=== PATIENT | male | born 1975 | race American Indian/Alaskan Native ===

== ENCOUNTER 2017-10-16 14:39 | Emergency (ER) | payer SELFPAY ==
[2017-10-16] MEDS ORDERED: ZOFRAN ODT PO/SL ONE (17:50)
[2017-10-16] MEDS ORDERED: PERCOCET 5/325 PO ONE (17:50)
--- NOTE | 2017-10-16 17:53 | Emergency Department Report ---
<VIVEK GARZA - Last Filed: 10/16/17 18:36> ED Abdominal Pain HPI - General Chief Complaint: Abdominal Pain Stated Complaint: PANCREATITIS FLARE Time Seen by Provider: 10/16/17 17:42 Source: patient Mode of arrival: Ambulatory Limitations: No Limitations - History of Present Illness Initial Comments: Mr. Collazo presents with "pancreatitis" due to greasy foods. He has had previous hx of pancreatitis. Drinks alcohol on a week basis. Last drink one week ago. +hx of HTN and DM MD Complaint: abdominal pain -: days(s) (2) Location: epigastric Radiation: RUQ, back Severity: moderate Quality: cramping, sharp Consistency: constant Improves With: nothing Worsens With: eating - Related Data Previous Rx's Medication Instructions Recorded Last Taken Type Acetaminophen/Codeine [Tylenol 1 tab PO Q8H PRN #7 tab 10/16/17 Unknown Rx /Codeine # 3 tab] Famotidine 20 mg PO BID 30 Days #60 tablet 10/16/17 Unknown Rx Allergies Allergy/AdvReac Type Severity Reaction Status Date / Time No Known Allergies Allergy Unverified 10/16/17 15:33 ED Review of Systems ROS: Stated complaint: PANCREATITIS FLARE Other details as noted in HPI Comment: All other systems reviewed and negative Constitutional: denies: fever, malaise Cardiovascular: denies: chest pain ED Past Medical Hx - Past Medical History Hx Hypertension: Yes Hx Diabetes: Yes Additional medical history: PANCREATITIS - Surgical History Past Surgical History?: No - Social History Smoking Status: Current Every Day Smoker Substance Use Type: Alcohol - Medications Home Medications: Home Medications Medication Instructions Recorded Confirmed Last Taken Type Acetaminophen/Codeine [Tylenol 1 tab PO Q8H PRN #7 tab 10/16/17 Unknown Rx /Codeine # 3 tab] Famotidine 20 mg PO BID 30 Days #60 tablet 10/16/17 Unknown Rx ED Physical Exam - General Limitations: No Limitations General appearance: alert, in no apparent distress - Head Head exam: Present: atraumatic, normocephalic - Eye Eye exam: Present: normal appearance - ENT ENT exam: Present: mucous membranes moist - Neck Neck exam: Present: normal inspection - Respiratory Respiratory exam: Present: normal lung sounds bilaterally. Absent: respiratory distress, wheezes, rales, rhonchi - Cardiovascular Cardiovascular Exam: Present: regular rate, normal rhythm, normal heart sounds. Absent: systolic murmur, diastolic murmur, rubs, gallop - GI/Abdominal GI/Abdominal exam: Present: soft. Absent: distended, tenderness, guarding, rebound - Rectal Rectal exam: Present: deferred - Extremities Exam Extremities exam: Present: normal inspection - Back Exam Back exam: Present: normal inspection - Neurological Exam Neurological exam: Present: alert, oriented X3 - Psychiatric Psychiatric exam: Present: normal affect, normal mood - Skin Skin exam: Present: warm, dry, intact, normal color. Absent: rash ED Course Vital Signs 10/16/17 15:33 Temperature 98.6 F Pulse Rate 78 Respiratory 18 Rate Blood Pressure 144/98 O2 Sat by Pulse 100 Oximetry ED Medical Decision Making - Medical Decision Making Mr. Collazo has hx of pancreatitis. He presents with 2 days of epigastric pain radiating to the right upper quadrant and mid back. He appears well and comfortable. If lipase is elevated, I anticipate admission to hospital. Otherwise, my colleague will determine final disposition as appropriate. Critical care attestation.: If time is entered above; I have spent that time in minutes in the direct care of this critically ill patient, excluding procedure time. ED Disposition Clinical Impression: Pancreatitis Qualifiers: Chronicity: acute Pancreatitis type: unspecified pancreatitis type Acute pancreatitis complication: unspecified Qualified Code(s): K85.90 - Acute pancreatitis without necrosis or infection, unspecified Abdominal pain Qualifiers: Abdominal location: left upper quadrant Qualified Code(s): R10.12 - Left upper quadrant pain Nausea and vomiting Qualifiers: Vomiting type: unspecified Vomiting Intractability: non-intractable Qualified Code(s): R11.2 - Nausea with vomiting, unspecified Disposition: DC-01 TO HOME OR SELFCARE Condition: Stable Instructions: Abdominal Pain (ED), Pancreatitis (ED), Acute Nausea and Vomiting (ED) Prescriptions: Acetaminophen/Codeine [Tylenol /Codeine # 3 tab] 1 tab PO Q8H PRN #7 tab PRN Reason: Pain Famotidine 20 mg PO BID 30 Days #60 tablet Referrals: [facility] [Outside] - 3-5 Days Forms: Work/School Release Form(ED) <ANDREA BELCHER - Last Filed: 10/16/17 20:53> ED Medical Decision Making - Lab Data Result diagrams: 06/15/18 18:55 10/16/17 18:55 Laboratory Tests 10/16/17 10/16/17 18:55 18:55 WBC 9.5 RBC 5.61 H Hgb 16.6 H Hct 48.5 H MCV 87 MCH 30 MCHC 34 RDW 14.7 Plt Count 313 Lymph % (Auto) 11.4 L Hood % (Auto) 8.8 H Eos % (Auto) 0.9 Baso % (Auto) 0.7 Lymph # 1.1 L Hood # 0.8 Eos # 0.1 Baso # 0.1 Seg Neutrophils % 78.2 H Seg Neutrophils # 7.4 Sodium 136 L Potassium 3.9 Chloride 93.0 L Carbon Dioxide 26 Anion Gap 21 BUN 22 H Creatinine 1.1 Estimated GFR > 60 BUN/Creatinine Ratio 20 Glucose 138 H Calcium 9.8 Total Bilirubin 0.80 Direct Bilirubin 0.3 H Indirect Bilirubin 0.5 AST 29 ALT 24 Alkaline Phosphatase 91 Total Protein 8.8 H Albumin 4.9 Albumin/Globulin Ratio 1.3 Lipase 142 H - Medical Decision Making Lipase at 142 patient appears well appears well-hydrated patient is tolerating by mouth intake without nausea vomiting discussed lipase level with patient , patient states last drink 3 weeks ago, BISAP score for pancreatitis is 0, patient states he does not want admission discussed the importance of H2 laura patient requesting narcotic pain medication discussed with patient did not feel comfortable with same we'll prescribe 7 Tylenol 3 patient will follow up with [facility] given referral to same for EtOH not likely related to stop patient will be discharged to home in stable condition at this time there is no nausea no vomiting no fever no abnormal vital signs patient just completed evening meal will be discharged home at this time. ED Disposition Is pt being admited?: No Does the pt Need Aspirin: No Time of Disposition: 20:53
[2017-10-16 19:22] LABS: Basophils # (Auto) 0.1 K/mm3 (0.0-0.1); Basophils % (Auto) 0.7 % (0.0-1.8); Eosinophils # (Auto) 0.1 K/mm3 (0.0-0.4); Eosinophils % (Auto) 0.9 % (0.0-4.3); Hematocrit 48.5 % (35.5-45.6); Hemoglobin 16.6 gm/dl (11.8-15.2); Lymphocytes # (Auto) 1.1 K/mm3 (1.2-5.4); Lymphocytes % (Auto) 11.4 % (13.4-35.0); Mean Corpuscular HGB Conc 34 % (32-34); Mean Corpuscular Hemoglobin 30 pg (28-32); Mean Corpuscular Volume 87 fl (84-94); Monocytes # (Auto) 0.8 K/mm3 (0.0-0.8); Monocytes % (Auto) 8.8 % (0.0-7.3); Platelet Count 313 K/mm3 (140-440); Red Blood Count 5.61 M/mm3 (3.65-5.03); Red Cell Distribution Width 14.7 % (13.2-15.2)
[2017-10-16 19:44] LABS: Alanine Aminotransferase 24 units/L (7-56); Albumin 4.9 g/dL (3.9-5); BUN/Creatinine Ratio 20; Bilirubin,Direct 0.3 mg/dL (0-0.2); Blood Urea Nitrogen 22 mg/dL (9-20); Calcium 9.8 mg/dL (8.4-10.2); Hemolysis Index 3; Lipase 142 units/L (13-60)
[2017-10-16 23:48] VITALS: BP 143/98
== END 2017-10-16 21:31 | disposition home or self-care (01) ==
LOC: ED 14:39
DX: K85.90 Acute pancreatitis without necrosis or infection, unspecified (principal); I10 Essential (primary) hypertension; E11.9 Type 2 diabetes mellitus without complications; F17.200 Nicotine dependence, unspecified, uncomplicated
CPT/HCPCS: 36415; 80048; 80074; 83690; 85025; Q0162

== ENCOUNTER 2018-05-16 00:41 | Emergency (ER) | payer SELFPAY ==
[2018-05-16 01:12] VITALS: BP 146/93
[2018-05-16] MEDS ORDERED: DECADRON IM ONE (03:19)
[2018-05-16] MEDS ORDERED: IBUPROFEN PO ONE (03:19)
[2018-05-16] MEDS ORDERED: AUGMENTIN 875 MG PO ONE (03:19)
--- NOTE | 2018-05-16 03:26 | Emergency Department Report ---
ED ENT HPI - General Chief complaint: Sore Throat Stated complaint: SORE THROAT Time Seen by Provider: 05/16/18 03:15 Source: patient Mode of arrival: Ambulatory Limitations: No Limitations - History of Present Illness Initial comments: Patient is a 42-year-old -Citizen Of [place] male with history of recurrent strep throat presents for sore throat fever dysphagia 3 days T max 101.2 f oral at home pt has not take otc nsaids pt deneis dizziness lightheadedness no n/v MD complaint: sore throat Onset/Timin -: days(s) Location: throat Severity: moderate Severity scale (0 -10): 5 Quality: sharp Consistency: constant Improves with: none Worsens with: swallowing Associated Symptoms: fever, pain with swallowing, sore throat - Related Data Previous Rx's Medication Instructions Recorded Last Taken Type Acetaminophen/Codeine [Tylenol 1 tab PO Q8H PRN #7 tab 10/16/17 Unknown Rx /Codeine # 3 tab] Famotidine 20 mg PO BID 30 Days #60 tablet 10/16/17 Unknown Rx Amoxicillin/Potassium Clav 1 each PO BID 10 Days #20 tablet 05/16/18 Unknown Rx [Augmentin 875-125 Tablet] Benzocaine/Menth/Cetylpyrd 1 each MM Q2H PRN #3 packet 05/16/18 Unknown Rx [Cepacol X Strength] Ibuprofen 800 mg PO TID PRN #30 tablet 05/16/18 Unknown Rx Allergies Allergy/AdvReac Type Severity Reaction Status Date / Time No Known Allergies Allergy Unverified 10/16/17 15:33 ED Dental HPI - General Chief complaint: Sore Throat Stated complaint: SORE THROAT Time Seen by Provider: 05/16/18 03:15 Source: patient Mode of arrival: Ambulatory Limitations: No Limitations - Related Data Previous Rx's Medication Instructions Recorded Last Taken Type Acetaminophen/Codeine [Tylenol 1 tab PO Q8H PRN #7 tab 10/16/17 Unknown Rx /Codeine # 3 tab] Famotidine 20 mg PO BID 30 Days #60 tablet 10/16/17 Unknown Rx Amoxicillin/Potassium Clav 1 each PO BID 10 Days #20 tablet 05/16/18 Unknown Rx [Augmentin 875-125 Tablet] Benzocaine/Menth/Cetylpyrd 1 each MM Q2H PRN #3 packet 05/16/18 Unknown Rx [Cepacol X Strength] Ibuprofen 800 mg PO TID PRN #30 tablet 05/16/18 Unknown Rx Allergies Allergy/AdvReac Type Severity Reaction Status Date / Time No Known Allergies Allergy Unverified 10/16/17 15:33 ED Review of Systems ROS: Stated complaint: SORE THROAT Other details as noted in HPI Constitutional: chills, fever, malaise Eyes: denies: eye pain, eye discharge, vision change ENT: throat pain Respiratory: denies: cough, shortness of breath, wheezing Cardiovascular: denies: chest pain, palpitations Endocrine: no symptoms reported Gastrointestinal: denies: abdominal pain, nausea, diarrhea Genitourinary: denies: urgency, dysuria Musculoskeletal: denies: back pain, joint swelling, arthralgia Skin: denies: rash, lesions Neurological: denies: headache, weakness, paresthesias Psychiatric: denies: anxiety, depression Hematological/Lymphatic: denies: easy bleeding, easy bruising ED Past Medical Hx - Past Medical History Previous Medical History?: Yes Hx Hypertension: Yes Hx Diabetes: Yes Additional medical history: PANCREATITIS - Social History Smoking Status: Heavy Tobacco Smoker Substance Use Type: Alcohol, Marijuana - Medications Home Medications: Home Medications Medication Instructions Recorded Confirmed Last Taken Type Acetaminophen/Codeine [Tylenol 1 tab PO Q8H PRN #7 tab 10/16/17 Unknown Rx /Codeine # 3 tab] Famotidine 20 mg PO BID 30 Days #60 tablet 10/16/17 Unknown Rx Amoxicillin/Potassium Clav 1 each PO BID 10 Days #20 tablet 05/16/18 Unknown Rx [Augmentin 875-125 Tablet] Benzocaine/Menth/Cetylpyrd 1 each MM Q2H PRN #3 packet 05/16/18 Unknown Rx [Cepacol X Strength] Ibuprofen 800 mg PO TID PRN #30 tablet 05/16/18 Unknown Rx ED Physical Exam - General Limitations: No Limitations General appearance: alert, in no apparent distress - Head Head exam: Present: atraumatic, normocephalic - Eye Eye exam: Present: normal appearance, PERRL, EOMI Pupils: Present: normal accommodation - ENT ENT exam: Present: mucous membranes moist - Expanded ENT Exam Expanded Ear exam: Present: normal external inspection Mouth exam: Present: tongue normal. Absent: trismus, tongue elevation Throat exam: Positive: tonsillar erythema, tonsillomegaly, tonsillar exudate, other (uvula midline moderat exudate no lesion no stridor no wheezing no tonsilar abscess ). Negative: R peritonsillar mass, L peritonsillar mass - Neck Neck exam: Present: normal inspection, full ROM, lymphadenopathy. Absent: tenderness, meningismus, thyromegaly - Expanded Neck Exam Expanded Neck exam: Absent: tenderness, midline deformity, anterior neck swelling, thyroid mass, carotid bruit, tracheal deviation - Respiratory Respiratory exam: Present: normal lung sounds bilaterally. Absent: respiratory distress, wheezes, stridor, chest wall tenderness - Cardiovascular Cardiovascular Exam: Present: regular rate, normal rhythm, normal heart sounds. Absent: systolic murmur, diastolic murmur, rubs, gallop - GI/Abdominal GI/Abdominal exam: Present: soft, normal bowel sounds - Rectal Rectal exam: Present: deferred - Extremities Exam Extremities exam: Present: normal inspection - Back Exam Back exam: Present: normal inspection, full ROM, muscle spasm. Absent: tenderness, CVA tenderness (R), CVA tenderness (L), paraspinal tenderness, vertebral tenderness, rash noted - Neurological Exam Neurological exam: Present: alert, oriented X3, CN II-XII intact, normal gait - Psychiatric Psychiatric exam: Present: normal affect, normal mood - Skin Skin exam: Present: warm, dry, intact, normal color. Absent: rash ED Course Vital Signs 05/16/18 05/16/18 00:47 01:02 Temperature 99.1 F 99 F Pulse Rate 120 H 116 H Respiratory 18 18 Rate Blood Pressure 146/93 146/93 O2 Sat by Pulse 97 96 Oximetry ED Medical Decision Making - Lab Data Labs 05/16/18 01:26 Group A Strep Rapid Negative - Medical Decision Making This the actual pharyngitis Plan Decadron Augmentin Benadryl with DC to home with Cepacol Augmentin Benadryl patient will follow up with ENT in 2-3 days return to emergency department should symptoms worsen there are no symptoms of tonsillar abscess he will remain midline there is no stridor lungs are clear fevers improved heart rate is improved patient will be DC'd home in stable condition at this time Critical care attestation.: If time is entered above; I have spent that time in minutes in the direct care of this critically ill patient, excluding procedure time. ED Disposition Clinical Impression: Pharyngitis Qualifiers: Pharyngitis/tonsillitis etiology: unspecified etiology Qualified Code(s): J02.9 - Acute pharyngitis, unspecified Disposition: TO HOME OR SELFCARE Is pt being admited?: No Does the pt Need Aspirin: No Condition: Stable Instructions: Pharyngitis (ED) Prescriptions: Amoxicillin/Potassium Clav [Augmentin 875-125 Tablet] 1 each PO BID 10 Days #20 tablet Benzocaine/Menth/Cetylpyrd [Cepacol X Strength] 1 each MM Q2H PRN #3 packet PRN Reason: Pain , Severe (7-10) Ibuprofen 800 mg PO TID PRN #30 tablet PRN Reason: fever pain Referrals: MARISSA WAGNER MD [Staff Physician] - 3-5 Days Forms: Work/School Release Form(ED) Time of Disposition: 03:33
== END 2018-05-16 03:43 | disposition home or self-care (01) ==
LOC: ED 00:41
DX: J02.9 Acute pharyngitis, unspecified (principal); I10 Essential (primary) hypertension; E11.9 Type 2 diabetes mellitus without complications; F17.200 Nicotine dependence, unspecified, uncomplicated; F12.10 Cannabis abuse, uncomplicated
CPT/HCPCS: 87116; 87430; 96372; 99283; J1100

== ENCOUNTER 2018-06-22 18:15 | Emergency (ER) | payer SELFPAY ==
[2018-06-22 20:34] VITALS: BP 140/83
--- NOTE | 2018-06-22 20:42 | Emergency Department Report ---
ED Abdominal Pain HPI - General Chief Complaint: Abdominal Pain Stated Complaint: STOMACH PAIN Time Seen by Provider: 06/22/18 18:48 Source: patient Mode of arrival: Ambulatory Limitations: No Limitations - History of Present Illness Initial Comments: 42 y/o male with pmh of chronic recurrent pancreaittis presents to ed c/o of resolvoing abdominal pain since thursday due drinking and eating that caused a pancreatitis flare. only wants a note to return to work. Dneies vomiting or diarrhea. No fever or chills. no sweats. MD Complaint: abdominal pain Location: epigastric Radiation: epigastric Severity: mild Severity scale (0 -10): 4 Quality: stabbing Consistency: constant Improves With: nothing Worsens With: nothing Context: other Associated Symptoms: denies: vomiting, constipation, dysuria, hematemesis, hematuria, anorexia, syncope - Related Data Previous Rx's Medication Instructions Recorded Last Taken Type Acetaminophen/Codeine [Tylenol 1 tab PO Q8H PRN #7 tab 10/16/17 Unknown Rx /Codeine # 3 tab] Famotidine 20 mg PO BID 30 Days #60 tablet 10/16/17 Unknown Rx Amoxicillin/Potassium Clav 1 each PO BID 10 Days #20 tablet 05/16/18 Unknown Rx [Augmentin 875-125 Tablet] Benzocaine/Menth/Cetylpyrd 1 each MM Q2H PRN #3 packet 05/16/18 Unknown Rx [Cepacol X Strength] Ibuprofen 800 mg PO TID PRN #30 tablet 05/16/18 Unknown Rx Allergies Allergy/AdvReac Type Severity Reaction Status Date / Time No Known Allergies Allergy Verified 06/22/18 20:32 ED Review of Systems ROS: Stated complaint: STOMACH PAIN Other details as noted in HPI Constitutional: denies: chills, fever Eyes: denies: eye pain, eye discharge, vision change ENT: denies: ear pain, throat pain Respiratory: denies: cough, shortness of breath, wheezing Cardiovascular: denies: chest pain, palpitations Endocrine: no symptoms reported Gastrointestinal: abdominal pain. denies: nausea, diarrhea, hematemesis Genitourinary: denies: urgency, dysuria Musculoskeletal: denies: back pain, joint swelling, arthralgia Skin: denies: rash, lesions Neurological: denies: headache, weakness, paresthesias Psychiatric: denies: anxiety, depression Hematological/Lymphatic: denies: easy bleeding, easy bruising ED Past Medical Hx - Past Medical History Hx Hypertension: Yes Hx Diabetes: Yes Additional medical history: PANCREATITIS - Surgical History Past Surgical History?: No - Social History Smoking Status: Current Every Day Smoker Substance Use Type: Alcohol, Marijuana - Medications Home Medications: Home Medications Medication Instructions Recorded Confirmed Last Taken Type Acetaminophen/Codeine [Tylenol 1 tab PO Q8H PRN #7 tab 10/16/17 Unknown Rx /Codeine # 3 tab] Famotidine 20 mg PO BID 30 Days #60 tablet 10/16/17 Unknown Rx Amoxicillin/Potassium Clav 1 each PO BID 10 Days #20 tablet 05/16/18 Unknown Rx [Augmentin 875-125 Tablet] Benzocaine/Menth/Cetylpyrd 1 each MM Q2H PRN #3 packet 05/16/18 Unknown Rx [Cepacol X Strength] Ibuprofen 800 mg PO TID PRN #30 tablet 05/16/18 Unknown Rx ED Physical Exam - General Limitations: No Limitations General appearance: alert, in no apparent distress - Head Head exam: Present: atraumatic, normocephalic - Eye Eye exam: Present: normal appearance, PERRL - ENT ENT exam: Present: mucous membranes moist - Neck Neck exam: Present: normal inspection - Respiratory Respiratory exam: Present: normal lung sounds bilaterally. Absent: respiratory distress - Cardiovascular Cardiovascular Exam: Present: regular rate, normal rhythm. Absent: systolic murmur, diastolic murmur, rubs, gallop - GI/Abdominal GI/Abdominal exam: Present: soft, normal bowel sounds - Rectal Rectal exam: Present: deferred - Extremities Exam Extremities exam: Present: normal inspection - Back Exam Back exam: Present: normal inspection - Neurological Exam Neurological exam: Present: alert, oriented X3 - Psychiatric Psychiatric exam: Present: normal affect, normal mood - Skin Skin exam: Present: warm, dry, intact, normal color. Absent: rash ED Course Vital Signs 06/22/18 20:32 Temperature 97.8 F Pulse Rate 98 H Respiratory 18 Rate Blood Pressure 140/83 O2 Sat by Pulse 98 Oximetry ED Medical Decision Making - Medical Decision Making discussed labs and imaging. mr. murphy refused saying he is better an already knows what was going on. only wants a work note Critical care attestation.: If time is entered above; I have spent that time in minutes in the direct care of this critically ill patient, excluding procedure time. ED Disposition Clinical Impression: Abdominal pain Disposition: DC-01 TO HOME OR SELFCARE Is pt being admited?: No Does the pt Need Aspirin: No Condition: Stable Instructions: Pancreatitis (ED) Referrals: [facility] [Provider Group] - 3-5 Days Forms: Work/School Release Form(ED)
== END 2018-06-22 20:59 | disposition home or self-care (01) ==
LOC: ED 18:15
DX: R10.13 Epigastric pain (principal); I10 Essential (primary) hypertension; F17.200 Nicotine dependence, unspecified, uncomplicated; E11.9 Type 2 diabetes mellitus without complications; F12.10 Cannabis abuse, uncomplicated
CPT/HCPCS: 99282

== ENCOUNTER 2018-07-11 16:21 | Emergency (ER) | payer OTHER ==
--- NOTE | 2018-07-11 16:33 | Emergency Department Report ---
Blank Doc - Documentation Documentation: This is a 42-year-old male that presents with right hand pain with tingling and numbness sensation. Patient stated has history of tendinitis to the right hand. Stated symptoms are similar. This initial assessment/diagnostic orders/clinical plan/treatment(s) is/are subject to change based on patient's health status, clinical progression and re- assessment by fellow clinical providers in the ED. Further treatment and workup at subsequent clinical providers discretion. Patient/guardians urged not to elope from the ED as their condition may be serious if not clinically assessed and managed. Initial orders include: 1- Patient sent to [facility] for further evaluation and treatment 2- xray
[2018-07-11 16:35] VITALS: BP 128/76
--- NOTE | 2018-07-11 17:17 | Emergency Department Report ---
Upper Extremity - HPI Chief Complaint: Extremity Injury, Upper Stated Complaint: HAND HURTS Time Seen by Provider: 07/11/18 17:01 Upper Extremity: Right Hand Occurred When: >5 Days Symptoms: Yes Pain with Movement, No Deformity, No Limited Range of Movement, No Numbness, No Weakness, No Swelling, No Bruising/Ecchymosis, No Laceration or Abrasion Other History: Patient is a 42-year-old male that presents emergency room with complaints of right hand pain. Patient states she's had right hand pain for 10 years and came to the emergency room for a work note as he called in sick yesterday and wants to call in sick today. Patient states the pain is a 7 out of 10. Patient states worse with movement and better with rest and immobilization. Patient denies trauma. Patient states he's never seen an orthopedist. Patient states he hasn't seen his primary care recently. ED Review of Systems ROS: Stated complaint: HAND HURTS Other details as noted in HPI Constitutional: denies: chills, fever Eyes: denies: eye pain, eye discharge, vision change ENT: denies: ear pain, throat pain Respiratory: denies: cough, shortness of breath, wheezing Cardiovascular: denies: chest pain, palpitations Endocrine: no symptoms reported Gastrointestinal: denies: abdominal pain, nausea, diarrhea Genitourinary: denies: urgency, dysuria Musculoskeletal: denies: back pain, joint swelling, arthralgia Skin: denies: rash, lesions Neurological: denies: headache, weakness, paresthesias Psychiatric: denies: anxiety, depression Hematological/Lymphatic: denies: easy bleeding, easy bruising ED Past Medical Hx - Past Medical History Previous Medical History?: Yes Hx Hypertension: Yes Hx Diabetes: Yes Additional medical history: PANCREATITIS. Chronic right hand pain - Surgical History Past Surgical History?: No - Family History Family history: no significant - Social History Smoking Status: Current Every Day Smoker Substance Use Type: None, Marijuana - Medications Home Medications: Home Medications Medication Instructions Recorded Confirmed Last Taken Type Acetaminophen/Codeine [Tylenol 1 tab PO Q8H PRN #7 tab 10/16/17 Unknown Rx /Codeine # 3 tab] Famotidine 20 mg PO BID 30 Days #60 tablet 10/16/17 Unknown Rx Amoxicillin/Potassium Clav 1 each PO BID 10 Days #20 tablet 05/16/18 Unknown Rx [Augmentin 875-125 Tablet] Benzocaine/Menth/Cetylpyrd 1 each MM Q2H PRN #3 packet 05/16/18 Unknown Rx [Cepacol X Strength] Ibuprofen 800 mg PO TID PRN #30 tablet 05/16/18 Unknown Rx Upper Extremity Exam - Exam General: Vital signs noted. No distress. Alert and acting appropriately. The patient appeared well nourished and normally developed. Vital signs as documented. Head exam is unremarkable. No scleral icterus or corneal arcus noted. Lungs are clear to auscultation and percussion. Cardiac exam reveals Rhythm is regular. First and second heart sounds normal. No murmurs, rubs or gallops. Head and Torso: No HEENT Abnormality, No Neck Tenderness, No Chest/Lungs Abnormality, No Abdominal Tenderness, No Back Tenderness Shoulder Exam: Yes Normal Range of Motion in Shoulder, No Shoulder Tenderness, No Clavicle Tenderness, No Shoulder Deformity, No AC Joint Tenderness Arm Exam: No Arm/Humerus Tenderness, No Arm Deformity Elbow: No Elbow Tenderness, No Normal Range of Motion in Elbow, No Elbow Deformity Forearm: No Forearm Tenderness, No Forearm Deformity, No Pain with Pronation, No Pain with Supination Wrist: Yes Normal ROM in Wrist, No Wrist Tenderness, No Wrist Deformity, No Snuffbox Tenderness, No Pain with Axial Thumb Compression Hand: Yes Normal ROM in Digit(s), No Hand Tenderness, No Hand Deformity, No Digit Tenderness, No Digit(s) Deformity, No Tendon Dysfunction CMS Exam: No Broken Skin, No Normal Distal Pulses, No Normal Capillary Refill, No Normal Distal Sensation ED Course Vital Signs 07/11/18 16:32 Temperature 97.9 F Pulse Rate 95 H Respiratory 18 Rate Blood Pressure 128/76 O2 Sat by Pulse 99 Oximetry - Reevaluation(s) Reevaluation #1: Initial exam done. Discussed plan of care with patient. Patient is not having any emergency medical condition. Patient does not require any further investigation ER. Patient needs to follow up with orthopedist and his primary care. Patient will be discharged home. Patient given discharge instruction. Patient voiced understanding of discharge instructions. Patient is requesting a work note for yesterday and today. Patient instructed to follow up with his primary care orthopedist for such documentation. 07/11/18 17:15 ED Medical Decision Making - Medical Decision Making Patient is a 42-year-old male up since July in with complaints of right hand pain. Patient states the pain is fluctuating at this time is a 7 out of 10. Patient states he really came to the emergency room for a work note. Discussed plan of care with patient. Patient is not having any emergency medical condition. Patient does not require any further investigation ER. Patient needs to follow up with orthopedist and his primary care. Patient will be discharged home. Patient given discharge instruction. Patient voiced understanding of discharge instructions. Patient is requesting a work note for yesterday and today. Patient instructed to follow up with his primary care orthopedist for such documentation. - Differential Diagnosis hand pain. Chronic hand pain Critical care attestation.: If time is entered above; I have spent that time in minutes in the direct care of this critically ill patient, excluding procedure time. ED Disposition Clinical Impression: Hand pain, right Disposition: DC-01 TO HOME OR SELFCARE Is pt being admited?: No Does the pt Need Aspirin: No Condition: Stable Instructions: Chronic Pain (ED), Tenosynovitis (ED), Tendinitis (ED) Additional Instructions: Patient to follow up with primary care in 2-3 days. Patient to follow-up with orthopedist in 2-3 days. Patient to return to ER condition worsens or changes. Patient to take Tylenol or ibuprofen when necessary for pain. Patient to rest. Patient to see primary care or orthopedist for work notes. Referrals: DANAE TEJEDA MD [Staff Physician] - 2-3 Days Time of Disposition: 17:18
--- NOTE | 2018-07-11 18:06 | XRay Report ---
PROCEDURE: Right hand. TECHNIQUE: 4 views. HISTORY: Right hand pain. COMPARISONS: None. FINDINGS: The bones appear intact without fracture or dislocation. The joint spaces appear normal. The soft tis sues are unremarkable. IMPRESSION: Normal study. This document is electronically signed by Raul Ascencio MD., July 11 2018 06:03:02 PM ET
== END 2018-07-11 17:25 | disposition home or self-care (01) ==
LOC: ED 16:21
DX: M79.641 Pain in right hand (principal); I10 Essential (primary) hypertension; E11.9 Type 2 diabetes mellitus without complications; G89.29 Other chronic pain; F17.200 Nicotine dependence, unspecified, uncomplicated
CPT/HCPCS: 99283

== ENCOUNTER 2018-10-08 16:07 | Emergency (ER) | payer SELFPAY ==
[2018-10-08 16:20] VITALS: BP 132/80
== END 2018-10-08 19:00 | disposition left against medical advice (07) ==
LOC: ED 16:07
DX: M79.601 Pain in right arm (principal); Z53.21 Procedure and treatment not carried out due to patient leaving prior to being seen by health care provider

== ENCOUNTER 2019-03-05 04:35 | Emergency (ER) | payer OTHER ==
[2019-03-05 04:58] VITALS: BP 145/97
--- NOTE | 2019-03-05 06:25 | Emergency Department Report ---
Chief Complaint: Medical Clearance Stated Complaint: ABD PAIN Time Seen by Provider: 03/05/19 06:08 - HPI History of Present Illness: Patient here reported that he missed 2 days of work [place] was having a pancreatitis flare up and he was having abdominal pain but he is better now he states is here to have a work excuse then. Denies any fever or chills. Denies any diarrhea, urinary burning or frequency, abdominal pain, nausea or vomiting. Denies any shortness of breath or cough. Patient reports, "it is I feel better I just need a work excuse". - ROS Review of Systems: All systems are negative except with stated in HPI. Patient here for work excuse. Negative nausea, negative abdominal pain, negative diarrhea, negative vomiting, negative fever or chills, negative cough or chest pain - Exam Vital Signs: Vital Signs 03/05/19 04:57 Temperature 98.2 F Pulse Rate 100 H Respiratory 20 Rate Blood Pressure 145/97 [Right] O2 Sat by Pulse 100 Oximetry Physical Exam: Gen. this is a 43-year-old male well-nourished well-developed in no acute distress. He is here to get work excuse in denies any other problem. Alert and oriented 3 and GCS of 15. Gait is normal MSE screening note: Focused history and physical exam performed. Due to findings the following was ordered: I discussed the patient that this if he needs to be seen for abdominal pain which he said he does not have any more than we will be able to see him but if he does need a work excuse then I will not be able to give him a work excuse because that is not an appropriate emergency room visit. Patient walked out before signing AMA. Please see weakness AMA signed by myself and nurse. I discussed this with Dr. Dc. Patient discussed with doctor:: MEETA DC ED Disposition for MSE Condition: Stable Referrals: PRIMARY CARE, [Primary Care Provider] - 3-5 Days Forms: AMA Form
== END 2019-03-05 06:30 | disposition left against medical advice (07) ==
LOC: ED 04:35
DX: R10.9 Unspecified abdominal pain (principal); Z53.21 Procedure and treatment not carried out due to patient leaving prior to being seen by health care provider

== ENCOUNTER 2019-04-22 17:25 | Emergency (ER) | payer SELFPAY ==
[2019-04-22 19:52] VITALS: BP 110/70
--- NOTE | 2019-04-22 19:57 | Emergency Department Report ---
Chief Complaint: Sore Throat Stated Complaint: SORE THROAT/RUNNY NOSE Time Seen by Provider: 04/22/19 19:50 - HPI History of Present Illness: This is a 43 y.o. M. that presents to the ER with sore throat, congestion, and cough for 5 days. Taking theraflu and NSAIDs. PMH of DM, HTN, and anxiety Current smoker - ROS Review of Systems: ROS: Stated complaint: FLU LIKE SX Other details as noted in HPI Constitutional: chills, fever ENT: congestion, throat pain. denies: ear pain, Respiratory: cough. denies: shortness of breath, wheezing Cardiovascular: chest pain. denies: palpitations Gastrointestinal: denies: abdominal pain, nausea, diarrhea Musculoskeletal: myalgia. denies: back pain, joint swelling, arthralgia Skin: denies: rash, lesions Neurological: denies: headache, weakness, paresthesias Psychiatric: denies: anxiety, depression - Exam Vital Signs: Vital Signs 04/22/19 19:50 Temperature 98.7 F Pulse Rate 106 H Respiratory 18 Rate Blood Pressure 110/70 O2 Sat by Pulse 99 Oximetry Physical Exam: General: Vital signs noted. No distress. Alert and acting appropriately. HEENT: Yes Moist Mucous Membranes, Yes Rhinorrhea (turbinates congested with clear discharge), Erythematous posterior pharynx, uvula midline, No Pharyngeal Exudates, No Conjuctival Injection, No Frontal Tenderness, No Maxillary Tenderness Ear: Neither TM Bulge, Neither TM Erythema, Neither EAC Pain, Neither EAC Discharge Neck: Yes Supple, No Adenopathy Lungs: Yes Good Air Exchange, No Wheezes, No Ronchi, No Stridor, No Cough, No Labored Respirations, No Retractions, No Use of Accessory Muscles, No Other Abnormal Lung Sounds Heart: Yes Regular, No Murmur Abdomen: Yes Normal Bowel Sounds, No Tenderness, No Peritoneal Signs Skin: No Rash, No Edema Neurologic: Alert and oriented, no deficits. MSE screening note: Focused history and physical exam performed. Due to findings the following was ordered: ED Medical Decision Making - Medical Decision Making 43 y.o. male that presents with URI symptoms. Patient examined by me and stable. No distress noted. Vitals stable and afebrile. No signs of pharyngitis on exam. This is viral syndrome. Continue rzzu-but-foihume medication, increase fluids, and rest. Discharged home stable. Encouraged to do supportive care for URI. Follow up with Primary Care Provider in 2-3 days. ED Disposition for MSE Disposition: MED SCREENING EXAM-LEFT Condition: Stable Instructions: Viral Syndrome (ED), Cold Symptoms (ED) Additional Instructions: Increase fluid intake and rest. Wash hands frequently. Continue taking Tylenol or ibuprofen to control fever. F/U with Primary Care Provider. Referrals: [facility] [Outside] - 3-5 Days [facility] [Outside] - 3-5 Days [facility] [Outside] - 3-5 Days Forms: Work/School Release Form(ED) Time of Disposition: 20:21
== END 2019-04-22 20:30 | disposition left against medical advice (07) ==
LOC: ED 17:25
DX: J02.9 Acute pharyngitis, unspecified (principal); R09.81 Nasal congestion; R05 Cough
CPT/HCPCS: 99281

== ENCOUNTER 2019-05-04 17:19 | Emergency (ER) | payer SELFPAY ==
--- NOTE | 2019-05-04 20:40 | Event Note ---
ED Screening Note Date of service: 05/04/19 Time: 20:37 ED Screening Note: 43 y o male with a PMH of anxiety on clonazepam .5 BID states ran out of meds 3 days This initial assessment/diagnostic orders/clinical plan/treatment(s) is/are subject to change based on patients health status, clinical progression and re- assessment by fellow clinical providers in the ED. Further treatment and workup at subsequent clinical providers discretion. Patient/guardian urged not to elope from the ED as their condition may be serious if not clinically assessed and managed. Initial orders include: acc eval
--- NOTE | 2019-05-04 22:25 | Emergency Department Report ---
HPI - General Chief Complaint: Anxiety Time Seen by Provider: 05/04/19 22:06 - HPI HPI: Room 29 The patient is a 43-year-old male presented with a chief complaint of anxiety. The patient states he came for refill of his Klonopin that he uses to treat a nxiety. Patient states he ran out of his medication 2 days ago. The patient states today he developed anxiety feeling nervous and dizziness. Patient states he feels this way before he has panic attacks. The patient states his last prescription was written by Dr. Rivera from an urgent care facility and he does not have a primary doctor Location: [See above] Duration: [See above] Quality: [See above] Severity: [See above] Timing: [See above] Context: [See above] Modifying factors: [See above] Associated signs and symptoms: [see above] ED Past Medical Hx - Past Medical History Previous Medical History?: Yes Hx Hypertension: Yes Hx Diabetes: Yes Additional medical history: PANCREATITIS - Surgical History Past Surgical History?: No - Family History Family history: no significant - Social History Smoking Status: Current Every Day Smoker (1/3 pack per day) Substance Use Type: None (denies illicit drug use), Alcohol (occasional) - Medications Home Medications: Home Medications Medication Instructions Recorded Confirmed Last Taken Type Acetaminophen/Codeine [Tylenol 1 tab PO Q8H PRN #7 tab 10/16/17 Unknown Rx /Codeine # 3 tab] Famotidine 20 mg PO BID 30 Days #60 tablet 10/16/17 Unknown Rx Amoxicillin/Potassium Clav 1 each PO BID 10 Days #20 tablet 05/16/18 Unknown Rx [Augmentin 875-125 Tablet] Benzocaine/Mentho [Cepacol X 1 each MM Q2H PRN #3 packet 05/16/18 Unknown Rx Strength] Ibuprofen [Ibuprofen 800] 800 mg PO TID PRN #30 tablet 05/16/18 Unknown Rx clonazePAM 0.5 mg PO QDAY PRN #2 tablet 05/04/19 Unknown Rx hydrOXYzine PAMOATE [Vistaril] 25 mg PO Q6HR PRN #20 capsule 05/04/19 Unknown Rx ED Review of Systems ROS: Stated complaint: ANXIETY Other details as noted in HPI Psychiatric: anxiety Physical Exam - Physical Exam Vital Signs: Vital Signs 05/04/19 17:38 Temperature 98.4 F Pulse Rate 94 H Respiratory 16 Rate Blood Pressure 143/86 O2 Sat by Pulse 99 Oximetry Physical Exam: GENERAL: The patient is well-developed well-nourished male sitting in chair not appearing to be in acute distress. [] HEENT: Normocephalic. Atraumatic. Extraocular motions are intact. Patient has moist mucous membranes. NECK: Supple. Trachea midline CHEST/LUNGS: Clear to auscultation. There is no respiratory distress noted. HEART/CARDIOVASCULAR: Regular. There is no tachycardia. There is no gallop rub or murmur. ABDOMEN: Abdomen is soft, nontender. Patient has normal bowel sounds. There is no abdominal distention. SKIN: There is no rash. There is no edema. There is no diaphoresis. NEURO: The patient is awake, alert, and oriented. The patient is cooperative. The patient has no focal neurologic deficits. The patient has normal speech. Cranial nerves II through XII grossly intact, no drift MUSCULOSKELETAL: There is no evidence of acute injury. ED Course Vital Signs 05/04/19 17:38 Temperature 98.4 F Pulse Rate 94 H Respiratory 16 Rate Blood Pressure 143/86 O2 Sat by Pulse 99 Oximetry ED Medical Decision Making - Differential Diagnosis anxiety Critical care attestation.: If time is entered above; I have spent that time in minutes in the direct care of this critically ill patient, excluding procedure time. ED Disposition Clinical Impression: Anxiety, Encounter for medication refill Disposition: -01 TO HOME OR SELFCARE Is pt being admited?: No Does the pt Need Aspirin: No Condition: Stable Instructions: Anxiety (ED), Benzodiazepine Abuse (ED) Additional Instructions: Return to the emergency department should you develop worsening symptoms, inability to tolerate food or liquids, high fever or any other concerns Prescriptions: clonazePAM 0.5 mg PO QDAY PRN #2 tablet PRN Reason: Anxiety hydrOXYzine PAMOATE [Vistaril] 25 mg PO Q6HR PRN #20 capsule PRN Reason: Anxiety Referrals: [facility] [Outside] - 3-5 Days [facility] [Outside] - 3-5 Days Time of Disposition: 22:26
[2019-05-04] MEDS ORDERED: hydrOXYzine PAMOATE 25 MG CAP ONE (22:44)
[2019-05-04] MEDS ORDERED: hydrOXYzine PAMOATE 25 MG CAP PO ONE (22:44)
[2019-05-04 22:47] VITALS: BP 159/79
== END 2019-05-04 22:47 | disposition home or self-care (01) ==
LOC: ED 17:19
DX: F41.9 Anxiety disorder, unspecified (principal); I10 Essential (primary) hypertension; E11.9 Type 2 diabetes mellitus without complications; F17.200 Nicotine dependence, unspecified, uncomplicated; Z76.0 Encounter for issue of repeat prescription; Z79.899 Other long term (current) drug therapy
CPT/HCPCS: Q0177

== ENCOUNTER 2020-01-21 15:24 | Emergency (ER) | payer SELFPAY ==
[2020-01-21 15:40] VITALS: BP 128/89
[2020-01-21 16:24] LABS: Alanine Aminotransferase 55 units/L (7-56); Albumin 4.9 g/dL (3.9-5); BUN/Creatinine Ratio 18; Blood Urea Nitrogen 22 mg/dL (9-20); Hemolysis Index 7
[2020-01-21 16:58] LABS: Basophils % (Auto) 0.6 % (0.0-1.8); Eosinophils # (Auto) 0.1 K/mm3 (0.0-0.4); Eosinophils % (Auto) 1.2 % (0.0-4.3); Hematocrit 48.4 % (35.5-45.6); Hemoglobin 16.1 gm/dl (11.8-15.2); Lymphocytes # (Auto) 1.1 K/mm3 (1.2-5.4); Lymphocytes % (Auto) 20.4 % (13.4-35.0); Mean Corpuscular HGB Conc 33 % (32-34); Mean Corpuscular Volume 93 fl (84-94); Monocytes # (Auto) 0.7 K/mm3 (0.0-0.8); Monocytes % (Auto) 12.4 % (0.0-7.3); Platelet Count 329 K/mm3 (140-440); Red Blood Count 5.22 M/mm3 (3.65-5.03); Red Cell Distribution Width 13.8 % (13.2-15.2)
[2020-01-21] MEDS ORDERED: ONDANSETRON 4 MG/2 ML INJ IV ONE (19:04)
[2020-01-21] MEDS ORDERED: SODIUM CHLORIDE 0.9% 1000 ML 1,000 ML IV ONE (19:04)
[2020-01-21] MEDS ORDERED: ACETAMINOPHEN 500 MG TAB PO ONE (19:05)
--- NOTE | 2020-01-21 19:09 | Emergency Department Report ---
ED General Adult HPI - General Chief complaint: Abdominal Pain Stated complaint: SWEATING/FATIGUE/ABD PAIN Time Seen by Provider: 01/21/20 19:03 Source: patient Mode of arrival: Ambulatory Limitations: No Limitations - History of Present Illness Initial comments: 44 year-old -[place] male comes in complaining of mild abdominal pain nausea sweating and fatigue. Patient states that he started sweating on Thursday having some pain crampiness weakness and tired and itching. Patient does report a history of diabetes hypertension and anxiety. Patient reports he takes his chronic medications as prescribed. Patient does report a history of pancr eatitis and last had a alcoholic drink on Thursday. Patient denies any fever does admit to chills no chest pain no shortness of breath. - Related Data Previous Rx's Medication Instructions Recorded Last Taken Type Acetaminophen/Codeine [Tylenol 1 tab PO Q8H PRN #7 tab 10/16/17 Unknown Rx /Codeine # 3 tab] Famotidine 20 mg PO BID 30 Days #60 tablet 10/16/17 Unknown Rx Amoxicillin/Potassium Clav 1 each PO BID 10 Days #20 tablet 05/16/18 Unknown Rx [Augmentin 875-125 Tablet] Benzocaine/Mentho [Cepacol X 1 each MM Q2H PRN #3 packet 05/16/18 Unknown Rx Strength] Ibuprofen [Ibuprofen 800] 800 mg PO TID PRN #30 tablet 05/16/18 Unknown Rx clonazePAM 0.5 mg PO QDAY PRN #2 tablet 05/04/19 Unknown Rx hydrOXYzine PAMOATE [Vistaril] 25 mg PO Q6HR PRN #20 capsule 05/04/19 Unknown Rx Allergies Allergy/AdvReac Type Severity Reaction Status Date / Time No Known Allergies Allergy Verified 04/22/19 17:32 ED Review of Systems ROS: Stated complaint: SWEATING/FATIGUE/ABD PAIN Other details as noted in HPI ED Past Medical Hx - Past Medical History Previous Medical History?: Yes Hx Hypertension: Yes Hx Diabetes: Yes Additional medical history: PANCREATITIS - Surgical History Past Surgical History?: No - Social History Smoking Status: Current Every Day Smoker Substance Use Type: Marijuana - Medications Home Medications: Home Medications Medication Instructions Recorded Confirmed Last Taken Type Acetaminophen/Codeine [Tylenol 1 tab PO Q8H PRN #7 tab 10/16/17 Unknown Rx /Codeine # 3 tab] Famotidine 20 mg PO BID 30 Days #60 tablet 10/16/17 Unknown Rx Amoxicillin/Potassium Clav 1 each PO BID 10 Days #20 tablet 05/16/18 Unknown Rx [Augmentin 875-125 Tablet] Benzocaine/Mentho [Cepacol X 1 each MM Q2H PRN #3 packet 05/16/18 Unknown Rx Strength] Ibuprofen [Ibuprofen 800] 800 mg PO TID PRN #30 tablet 05/16/18 Unknown Rx clonazePAM 0.5 mg PO QDAY PRN #2 tablet 05/04/19 Unknown Rx hydrOXYzine PAMOATE [Vistaril] 25 mg PO Q6HR PRN #20 capsule 05/04/19 Unknown Rx ED Physical Exam - General Limitations: No Limitations General appearance: alert, in no apparent distress - Head Head exam: Present: atraumatic, normocephalic - Eye Eye exam: Present: normal appearance - ENT ENT exam: Present: mucous membranes moist - Neck Neck exam: Present: normal inspection - Respiratory Respiratory exam: Present: normal lung sounds bilaterally - Cardiovascular Cardiovascular Exam: Present: regular rate, normal rhythm. Absent: systolic murmur, diastolic murmur, rubs, gallop - GI/Abdominal GI/Abdominal exam: Present: soft. Absent: distended, tenderness - Neurological Exam Neurological exam: Present: alert, oriented X3, normal gait - Psychiatric Psychiatric exam: Present: normal affect, normal mood - Skin Skin exam: Present: warm, dry, intact, normal color. Absent: rash ED Course Vital Signs 01/21/20 15:39 Temperature 98.1 F Pulse Rate 96 H Respiratory 18 Rate Blood Pressure 128/89 O2 Sat by Pulse 97 Oximetry - Reevaluation(s) Reevaluation #1: 01/21/20 21:44 Patient reports he feels much better after having fluids. ED Medical Decision Making - Lab Data Result diagrams: 01/21/20 15:41 01/21/20 15:41 - Medical Decision Making 44 year-old -[place] male comes in complaining of mild abdominal pain nausea sweating and fatigue. Patient states that he started sweating on Thursday having some pain crampiness weakness and tired and itching. Patient does report a history of diabetes hypertension and anxiety. Patient reports he takes his chronic medications as prescribed. Patient does report a history of p ancreatitis and last had a alcoholic drink on Thursday. Patient denies any fever does admit to chills no chest pain no shortness of breath. IV Zofran 4 mg IV. Patient's urine came back positive for THS and barbiturates. Other labs are within normal limits. Patient be discharged home with instructions to increase his fluid intake advance his diet as tolerated and rest. Critical care attestation.: If time is entered above; I have spent that time in minutes in the direct care of this critically ill patient, excluding procedure time. ED Disposition Clinical Impression: Nausea, Sweating, Fatigue Disposition: DC-01 TO HOME OR SELFCARE Is pt being admited?: No Does the pt Need Aspirin: No Condition: Stable Additional Instructions: Please increase your fluid intake advance your diet as tolerated rest and follow-up with your primary care provider. Referrals: PRIMARY CARE, [Primary Care Provider] - 3-5 Days VICKI RAZO MD [Staff Physician] - 3-5 Days Forms: Work/School Release Form(ED)
[2020-01-21 19:56] LABS: Bilirubin,Urine NEG (Negative); Blood,Urine SM (Negative); Color,Urine Yellow (Yellow); Hyaline Casts,Urine 2 /LPF; Mucus,Urine 2+ /HPF
[2020-01-21 19:59] LABS: Amphetamine Screen,Urine PRESUMPTIVE NEGATIVE; Benzodiazepines Screen,Urine PRESUMPTIVE NEGATIVE; Cannabinoid Screen,Urine PRESUMPTIVE POSITIVE; Cocaine Screen,Urine PRESUMPTIVE NEGATIVE; Methadone Screen,Urine PRESUMPTIVE NEGATIVE; Opiate Screen,Urine PRESUMPTIVE NEGATIVE
== END 2020-01-21 22:06 | disposition home or self-care (01) ==
LOC: ED 15:24
DX: R53.83 Other fatigue (principal); R10.9 Unspecified abdominal pain; R61 Generalized hyperhidrosis; I10 Essential (primary) hypertension; E11.9 Type 2 diabetes mellitus without complications; F17.200 Nicotine dependence, unspecified, uncomplicated; F12.90 Cannabis use, unspecified, uncomplicated; Z79.899 Other long term (current) drug therapy
CPT/HCPCS: 36415; 80053; 80307; 81001; 82962; 83690; 85025; 96361; 96374; 99283; J2405; J7030

== ENCOUNTER 2020-04-17 14:59 | Emergency (ER) | payer SELFPAY ==
[2020-04-17 16:42] VITALS: BP 141/92
[2020-04-17 18:20] LABS: Basophils # (Auto) 0.1 K/mm3 (0.0-0.1); Basophils % (Auto) 0.8 % (0.0-1.8); Eosinophils # (Auto) 0.1 K/mm3 (0.0-0.4); Eosinophils % (Auto) 0.9 % (0.0-4.3); Hemoglobin 13.9 gm/dl (11.8-15.2); Lymphocytes # (Auto) 1.2 K/mm3 (1.2-5.4); Lymphocytes % (Auto) 15.2 % (13.4-35.0); Mean Corpuscular HGB Conc 34 % (32-34); Mean Corpuscular Volume 90 fl (84-94); Monocytes # (Auto) 0.6 K/mm3 (0.0-0.8); Monocytes % (Auto) 7.8 % (0.0-7.3); Platelet Count 334 K/mm3 (140-440); Red Blood Count 4.58 M/mm3 (3.65-5.03); Red Cell Distribution Width 13.1 % (13.2-15.2)
[2020-04-17 18:32] LABS: Alanine Aminotransferase 80 units/L (7-56); Albumin 4.3 g/dL (3.9-5); BUN/Creatinine Ratio 17; Blood Urea Nitrogen 15 mg/dL (9-20); Calcium 9.7 mg/dL (8.4-10.2); Hemolysis Index 8
[2020-04-17] MEDS ORDERED: SODIUM CHLORIDE 0.9% 1000 ML 1,000 ML IV ONE (20:37)
[2020-04-17] MEDS ORDERED: ONDANSETRON 4 MG/2 ML INJ IV ONE ×3 (20:37→23:49)
[2020-04-17 20:49] LABS: Bacteria,Urine 1+ /HPF (Negative); Bilirubin,Urine NEG (Negative); Blood,Urine NEG (Negative); Color,Urine Yellow (Yellow); Hyaline Casts,Urine 6 /LPF; Mucus,Urine FEW /HPF
--- NOTE | 2020-04-17 21:51 | Cat Scan Report ---
CT ABDOMEN AND PELVIS WITH CONTRAST INDICATION / CLINICAL INFORMATION: abd pain. TECHNIQUE: Axial CT images were obtained through the abdomen and pelvis after 100 cc Omni [address] scans at this location are performed using CT dose reduction for ALARA by means of automated expos ure control. COMPARISON: None available. FINDINGS: LOWER CHEST: Mild coronary artery atherosclerotic calcification. HEPATOBILIARY: No significant abnormality. PANCREAS/SPLEEN/ADRENALS: Mild edematous appearance of the pancreatic body and tail with mild peripan creatic inflammatory change and small amount of disorganized fluid. No evidence of pancreatic necrosi s or focal collection. Adrenals and spleen demonstrate no significant abnormality. GENITOURINARY: No significant abnormality. GASTROINTESTINAL/MESENTERY: Appendix demonstrates no significant abnormality. No bowel obstruction or inflammation. No free air or significant free fluid. RETROPERITONEUM: No significant adenopathy. REPRODUCTIVE ORGANS: No significant abnormality. VASCULAR: No significant abnormality. BODY WALL: No significant abnormality. SKELETAL SYSTEM: No significant abnormality. IMPRESSION: 1. Mild pancreatic body and tail edema with mild peripancreatic inflammatory change consistent with a cute interstitial edematous pancreatitis. No necrosis or focal fluid collection. Recommend clinical/l aboratory correlation and further follow-up as warranted. 2. Mild coronary artery atherosclerotic calcification. Signer Name: Sohail Pettit MD Signed: 04/17/2020 9:47 PM Workstation Name: [id number]
[2020-04-17] MEDS ORDERED: LACTATED RINGERS 1,000 ML IV ONE (22:11)
[2020-04-17] MEDS ORDERED: KETOROLAC 30 MG/1 ML INJ IV ONE (22:11)
--- NOTE | 2020-04-17 22:59 | Emergency Department Report ---
ED Abdominal Pain HPI - General Chief Complaint: Abdominal Pain Stated Complaint: ABD PAIN, ARM PAIN Time Seen by Provider: 04/17/20 20:36 Source: patient Mode of arrival: Ambulatory Limitations: No Limitations - History of Present Illness Initial Comments: Patient is a 44-year-old -Citizen Of [place] male who presents for generalized abdominal pain x3 days. Patient has history of pancreatitis. Patient states still occasional drinker. States he may have overdone it 3 days ago. Symptoms include 8/10 aching and burning radiating to right upper quadrant. Patient denies history of gallstones however. There has been no fever, chills, there is nausea there is no vomiting. Symptoms are exacerbated by p.o. intake. Symptoms are relieved by nothing. MD Complaint: abdominal pain Severity scale (0 -10): 10 - Related Data Previous Rx's Medication Instructions Recorded Last Taken Type Acetaminophen/Codeine [Tylenol 1 tab PO Q8H PRN #7 tab 10/16/17 Unknown Rx /Codeine # 3 tab] Famotidine 20 mg PO BID 30 Days #60 tablet 10/16/17 Unknown Rx Amoxicillin/Potassium Clav 1 each PO BID 10 Days #20 tablet 05/16/18 Unknown Rx [Augmentin 875-125 Tablet] Benzocaine/Mentho [Cepacol X 1 each MM Q2H PRN #3 packet 05/16/18 Unknown Rx Strength] Ibuprofen [Ibuprofen 800] 800 mg PO TID PRN #30 tablet 05/16/18 Unknown Rx clonazePAM 0.5 mg PO QDAY PRN #2 tablet 05/04/19 Unknown Rx hydrOXYzine PAMOATE [Vistaril] 25 mg PO Q6HR PRN #20 capsule 05/04/19 Unknown Rx Famotidine [Pepcid] 20 mg PO BID #30 tablet 04/18/20 Unknown Rx HYDROcodone/APAP 5-325 [[place] 1 each PO Q6HR PRN #12 tablet 04/18/20 Unknown Rx 5-325 mg TAB] Allergies Allergy/AdvReac Type Severity Reaction Status Date / Time No Known Allergies Allergy Verified 04/22/19 17:32 ED Review of Systems ROS: Stated complaint: ABD PAIN, ARM PAIN Other details as noted in HPI Constitutional: denies: chills, fever Eyes: denies: eye pain, eye discharge, vision change ENT: denies: ear pain, throat pain Respiratory: denies: cough, shortness of breath, wheezing Cardiovascular: denies: chest pain, palpitations Endocrine: no symptoms reported Gastrointestinal: abdominal pain, nausea, vomiting. denies: diarrhea, const ipation, melena Genitourinary: denies: urgency, dysuria, frequency, hematuria, discharge Musculoskeletal: denies: back pain, joint swelling, arthralgia Skin: denies: rash, lesions Neurological: denies: headache, weakness, paresthesias Psychiatric: denies: anxiety, depression Hematological/Lymphatic: denies: easy bleeding, easy bruising ED Past Medical Hx - Past Medical History Previous Medical History?: Yes Hx Hypertension: Yes Hx Diabetes: Yes Additional medical history: PANCREATITIS - Surgical History Past Surgical History?: No - Social History Smoking Status: Current Every Day Smoker Substance Use Type: Marijuana - Medications Home Medications: Home Medications Medication Instructions Recorded Confirmed Last Taken Type Acetaminophen/Codeine [Tylenol 1 tab PO Q8H PRN #7 tab 10/16/17 Unknown Rx /Codeine # 3 tab] Famotidine 20 mg PO BID 30 Days #60 tablet 10/16/17 Unknown Rx Amoxicillin/Potassium Clav 1 each PO BID 10 Days #20 tablet 05/16/18 Unknown Rx [Augmentin 875-125 Tablet] Benzocaine/Mentho [Cepacol X 1 each MM Q2H PRN #3 packet 05/16/18 Unknown Rx Strength] Ibuprofen [Ibuprofen 800] 800 mg PO TID PRN #30 tablet 05/16/18 Unknown Rx clonazePAM 0.5 mg PO QDAY PRN #2 tablet 05/04/19 Unknown Rx hydrOXYzine PAMOATE [Vistaril] 25 mg PO Q6HR PRN #20 capsule 05/04/19 Unknown Rx Famotidine [Pepcid] 20 mg PO BID #30 tablet 04/18/20 Unknown Rx HYDROcodone/APAP 5-325 [[place] 1 each PO Q6HR PRN #12 tablet 04/18/20 Unknown Rx 5-325 mg TAB] ED Physical Exam - General Limitations: No Limitations General appearance: alert, in no apparent distress - Head Head exam: Present: atraumatic, normocephalic - Eye Eye exam: Present: normal appearance, EOMI Pupils: Present: normal accommodation - ENT ENT exam: Present: mucous membranes moist - Neck Neck exam: Present: normal inspection, full ROM. Absent: tenderness, lym phadenopathy - Respiratory Respiratory exam: Present: normal lung sounds bilaterally. Absent: respiratory distress, wheezes, stridor, chest wall tenderness - Cardiovascular Cardiovascular Exam: Present: regular rate, normal rhythm, normal heart sounds. Absent: systolic murmur, diastolic murmur, rubs, gallop - GI/Abdominal GI/Abdominal exam: Present: soft, tenderness (lUQ), normal bowel sounds. Absent: distended, guarding, rebound, rigid, bruit, hernia - Expanded GI/Abdominal Exam Expanded GI/Abdominal exam: Absent: psoas sign, obturator sign, heel tap sign, Kraus's sign, Rovsing's sign, tenderness at [place]'s Point, ascites - Rectal Rectal exam: Present: deferred - Extremities Exam Extremities exam: Present: normal inspection, full ROM, normal capillary refill. Absent: tenderness - Back Exam Back exam: Present: normal inspection, full ROM. Absent: tenderness, CVA tenderness (R), CVA tenderness (L), vertebral tenderness - Neurological Exam Neurological exam: Present: alert, oriented X3, CN II-XII intact, normal gait - Psychiatric Psychiatric exam: Present: normal affect, normal mood - Skin Skin exam: Present: warm, dry, intact, normal color. Absent: rash ED Course Vital Signs 04/17/20 16:39 Temperature 98.7 F Pulse Rate 79 Respiratory 16 Rate Blood Pressure 141/92 [Right] O2 Sat by Pulse 100 Oximetry ED Medical Decision Making - Lab Data Result diagrams: 04/17/20 17:55 04/17/20 17:55 Labs 04/17/20 04/17/20 04/17/20 17:55 17:55 20:39 WBC 7.9 RBC 4.58 Hgb 13.9 Hct 41.0 MCV 90 MCH 30 MCHC 34 RDW 13.1 L Plt Count 334 Lymph % (Auto) 15.2 [place] % (Auto) 7.8 H Eos % (Auto) 0.9 Baso % (Auto) 0.8 Lymph # (Auto) 1.2 [place] # (Auto) 0.6 Eos # (Auto) 0.1 Baso # (Auto) 0.1 Seg Neutrophils % 75.3 H Seg Neutrophils # 5.9 Sodium 136 L Potassium 4.6 Chloride 97.0 L Carbon Dioxide 26 Anion Gap 18 BUN 15 Creatinine 0.9 Estimated GFR > 60 BUN/Creatinine Ratio 17 Glucose 122 H Calcium 9.7 Total Bilirubin 0.70 AST 63 H ALT 80 H Alkaline Phosphatase 73 Total Protein 7.8 Albumin 4.3 Albumin/Globulin Ratio 1.2 Lipase 115 H Urine Color Yellow Urine Turbidity Clear Urine pH 6.0 Ur Specific Sisters 1.019 Urine Protein 30 mg/dl Urine Glucose (UA) Neg Urine Ketones Neg Urine Blood Neg Urine Nitrite Neg Urine Bilirubin Neg Urine Urobilinogen 2.0 Ur Leukocyte Esterase Neg Urine WBC (Auto) 3.0 Urine RBC (Auto) 2.0 U Epithel Cells (Auto) < 1.0 Urine Bacteria (Auto) 1+ Hyaline Casts 6 Urine Mucus Few - Radiology Data Radiology results: report reviewed, image reviewed Findings Reporting MD: Sohail Pettit Dictation Time: April 17, 2020 20:47 Line Inspector: Not available Acute Care Physician Date: CT ABDOMEN AND PELVIS WITH CONTRAST INDICATION / CLINICAL INFORMATION: abd pain. TECHNIQUE: Axial CT images were obtained through the abdomen and pelvis after 100 cc Omni [address] scans at this location are performed using CT dose reduction for ALARA by means of automated exposure control. COMPARISON: None available. FINDINGS: LOWER CHEST: Mild coronary artery atherosclerotic calcification. HEPATOBILIARY: No significant abnormality. PANCREAS/SPLEEN/ADRENALS: Mild edematous appearance of the pancreatic body and tail with mild peripancreatic inflammatory change and small amount of disorganized fluid. No evidence of pancreatic necrosis or focal collection. Adrenals and spleen demonstrate no significant abnormality. GENITOURINARY: No significant abnormality. GASTROINTESTINAL/MESENTERY: Appendix demonstrates no significant abnormality. No bowel obstruction or inflammation. No free air or significant free fluid. RETROPERITONEUM: No significant adenopathy. REPRODUCTIVE ORGANS: No significant abnormality. VASCULAR: No significant abnormality. BODY WALL: No significant abnormality. SKELETAL SYSTEM: No significant abnormality. IMPRESSION: 1. Mild pancreatic body and tail edema with mild peripancreatic inflammatory change consistent with acute interstitial edematous pancreatitis. No necrosis or focal fluid collection. Recommend clinical/laboratory correlation and further follow-up as warranted. 2. Mild coronary artery atherosclerotic calcification. Signer Name: Sohail Pettit MD Signed: 04/17/2020 8:47 PM Workstation Name: [id number] - Medical Decision Making CT Abd and pelvis: Mild pancreatic body and tail edema with mild peripancreatic inflammatory change consistent with acute interstitial edematous pancreatitis. No necrosis or focal fluid collection. labs noted above, pt advises pain improved with medications given in ed, plan: dc to home with rx follow up with primary care doctor in 2-3, take medications as prescribed, hydrocodone, pepcid, follow up with GI and pcp as directed. Critical care attestation.: If time is entered above; I have spent that time in minutes in the direct care of this critically ill patient, excluding procedure time. ED Disposition Clinical Impression: Pancreatitis Qualifiers: Chronicity: acute Pancreatitis type: unspecified pancreatitis type Acute pancreatitis complication: no infection or necrosis Qualified Code(s): K85.90 - Acute pancreatitis without necrosis or infection, unspecified Disposition: DC-01 TO HOME OR SELFCARE Is pt being admited?: No Does the pt Need Aspirin: No Condition: Stable Instructions: Pancreatitis Eating Plan, Acute Pancreatitis Prescriptions: HYDROcodone/APAP 5-325 [[place] 5-325 mg TAB] 1 each PO Q6HR PRN #12 tablet PRN Reason: Pain Famotidine [Pepcid] 20 mg PO BID #30 tablet Referrals: SIA MARCIAL MD [Staff Physician] - 3-5 Days SOHAIL TEJEDA MD [Staff Physician] - 3-5 Days Forms: Work/School Release Form(ED) Time of Disposition: 00:53
[2020-04-17] MEDS ORDERED: MORPHINE 4 MG/1 ML INJ IV ONE (23:49)
== END 2020-04-18 01:40 | disposition home or self-care (01) ==
LOC: ED 14:59
DX: K85.90 Acute pancreatitis without necrosis or infection, unspecified (principal); I10 Essential (primary) hypertension; E11.9 Type 2 diabetes mellitus without complications; F17.200 Nicotine dependence, unspecified, uncomplicated; F12.90 Cannabis use, unspecified, uncomplicated; Z79.899 Other long term (current) drug therapy
CPT/HCPCS: 36415; 74177; 80053; 81001; 83690; 85025; 96361; 96374; 96375; 99284; J1885; J2270; J2405; J7030; J7120; Q9967

== ENCOUNTER 2020-08-14 19:32 | Emergency (ER) | payer SELFPAY ==
[2020-08-15 00:43] LABS: Basophils % (Auto) 1.1 % (0.0-1.8); Eosinophils % (Auto) 1.2 % (0.0-4.3); Hemoglobin 15.9 gm/dl (11.8-15.2); Lymphocytes # (Auto) 0.5 K/mm3 (1.2-5.4); Mean Corpuscular HGB Conc 35 % (32-34); Mean Corpuscular Volume 90 fl (84-94); Monocytes # (Auto) 0.5 K/mm3 (0.0-0.8); Monocytes % (Auto) 14.7 % (0.0-7.3); Platelet Count 182 K/mm3 (140-440); Red Blood Count 5.09 M/mm3 (3.65-5.03); Red Cell Distribution Width 13.6 % (13.2-15.2)
[2020-08-15 01:26] LABS: Alanine Aminotransferase 37 units/L (7-56); Albumin 4.9 g/dL (3.9-5); Blood Urea Nitrogen 12 mg/dL (9-20); Calcium 9.5 mg/dL (8.4-10.2); Hemolysis Index 14
[2020-08-15 01:29] LABS: BUN/Creatinine Ratio 17; Bilirubin,Direct < 0.2 mg/dL (0-0.2)
--- NOTE | 2020-08-15 02:21 | Emergency Department Report ---
<GABBY PARR - Last Filed: 08/15/20 02:15> ED Abdominal Pain HPI - General Chief Complaint: Abdominal Pain Stated Complaint: ARM PAIN Time Seen by Provider: 08/14/20 23:28 Source: patient Mode of arrival: Ambulatory Limitations: No Limitations - History of Present Illness Initial Comments: 45-year-old F [place] male presents emerged department complaining of a few day history progressively worsening right lower quadrant pain associated with nausea but no vomiting or diarrhea constipation. No dysuria no hematuria no fever, chills, sweats no chest pain palpitation MD Complaint: abdominal pain Location: RLQ, suprapubic Radiation: none Migration to: RLQ, suprapubic Severity: mild, moderate Improves With: nothing Worsens With: eating Associated Symptoms: nausea. denies: diarrhea, constipation, dysuria, hematemes is, hematochezia, melena, hematuria, anorexia, syncope - Related Data Previous Rx's Medication Instructions Recorded Last Taken Type Acetaminophen/Codeine [Tylenol 1 tab PO Q8H PRN #7 tab 10/16/17 Unknown Rx /Codeine # 3 tab] Famotidine 20 mg PO BID 30 Days #60 tablet 10/16/17 Unknown Rx Amoxicillin/Potassium Clav 1 each PO BID 10 Days #20 tablet 05/16/18 Unknown Rx [Augmentin 875-125 Tablet] Benzocaine/Mentho [Cepacol X 1 each MM Q2H PRN #3 packet 05/16/18 Unknown Rx Strength] Ibuprofen [Ibuprofen 800] 800 mg PO TID PRN #30 tablet 05/16/18 Unknown Rx clonazePAM 0.5 mg PO QDAY PRN #2 tablet 05/04/19 Unknown Rx hydrOXYzine PAMOATE [Vistaril] 25 mg PO Q6HR PRN #20 capsule 05/04/19 Unknown Rx Famotidine [Pepcid] 20 mg PO BID #30 tablet 04/18/20 Unknown Rx HYDROcodone/APAP 5-325 [[place] 1 each PO Q6HR PRN #12 tablet 04/18/20 Unknown Rx 5-325 mg TAB] Hyoscyamine Subl [Levsin Sl 0.125 0.125 mg SL Q4HR PRN #20 tablet 08/15/20 Unknown Rx TAB] Ketorolac [Toradol] 10 mg PO Q6H PRN #10 tablet 08/15/20 Unknown Rx amLODIPine 10 mg PO DAILY #30 tab 08/15/20 Unknown Rx Allergies Allergy/AdvReac Type Severity Reaction Status Date / Time No Known Allergies Allergy Verified 04/22/19 17:32 ED Review of Systems Comment: All other systems reviewed and negative Musculoskeletal: arthralgia (To the left wrist and hand region atraumatic in nature) ED Past Medical Hx - Past Medical History Previous Medical History?: Yes Hx Hypertension: Yes Hx Diabetes: Yes Hx Psychiatric Treatment: Yes (anexity) Additional medical history: PANCREATITIS - Surgical History Past Surgical History?: No - Social History Smoking Status: Current Every Day Smoker Substance Use Type: Marijuana - Medications Home Medications: Home Medications Medication Instructions Recorded Confirmed Last Taken Type Acetaminophen/Codeine [Tylenol 1 tab PO Q8H PRN #7 tab 10/16/17 Unknown Rx /Codeine # 3 tab] Famotidine 20 mg PO BID 30 Days #60 tablet 10/16/17 Unknown Rx Amoxicillin/Potassium Clav 1 each PO BID 10 Days #20 tablet 05/16/18 Unknown Rx [Augmentin 875-125 Tablet] Benzocaine/Mentho [Cepacol X 1 each MM Q2H PRN #3 packet 05/16/18 Unknown Rx Strength] Ibuprofen [Ibuprofen 800] 800 mg PO TID PRN #30 tablet 05/16/18 Unknown Rx clonazePAM 0.5 mg PO QDAY PRN #2 tablet 05/04/19 Unknown Rx hydrOXYzine PAMOATE [Vistaril] 25 mg PO Q6HR PRN #20 capsule 05/04/19 Unknown Rx Famotidine [Pepcid] 20 mg PO BID #30 tablet 04/18/20 Unknown Rx HYDROcodone/APAP 5-325 [[place] 1 each PO Q6HR PRN #12 tablet 04/18/20 Unknown Rx 5-325 mg TAB] Hyoscyamine Subl [Levsin Sl 0.125 0.125 mg SL Q4HR PRN #20 tablet 08/15/20 Unknown Rx TAB] Ketorolac [Toradol] 10 mg PO Q6H PRN #10 tablet 08/15/20 Unknown Rx amLODIPine 10 mg PO DAILY #30 tab 08/15/20 Unknown Rx ED Physical Exam - General Limitations: No Limitations General appearance: alert, in no apparent distress - Head Head exam: Present: atraumatic, normocephalic - Eye Eye exam: Present: normal appearance - ENT ENT exam: Present: mucous membranes moist - Neck Neck exam: Present: normal inspection - Respiratory Respiratory exam: Present: normal lung sounds bilaterally. Absent: respiratory distress - Cardiovascular Cardiovascular Exam: Present: regular rate, normal rhythm. Absent: systolic murmur, diastolic murmur, rubs, gallop - GI/Abdominal GI/Abdominal exam: Present: soft, tenderness (Right lower quadrant with palpation.), normal bowel sounds, other (No Rovsing, no Duron Demarco, no [place] sign.). Absent: guarding, rebound, hyperactive bowel sounds, hypoactive bowel sounds, organomegaly - Rectal Rectal exam: Present: deferred - Extremities Exam Extremities exam: Present: normal inspection, normal capillary refill - Back Exam Back exam: Present: normal inspection - Neurological Exam Neurological exam: Present: alert, oriented X3 - Psychiatric Psychiatric exam: Present: normal affect, normal mood - Skin Skin exam: Present: warm, dry, intact, normal color. Absent: rash ED Medical Decision Making - Lab Data Result diagrams: 08/14/20 23:47 08/14/20 23:47 ED Disposition Clinical Impression: Fatty liver disease, nonalcoholic, Carpal tunnel syndrome of left wrist Disposition: DC-01 TO HOME OR SELFCARE Condition: Stable Instructions: Abdominal Pain, Adult, Carpal Tunnel Syndrome, [id number], Fatty Liver Disease Additional Instructions: take medications as prescribed, return to emergency if symptoms worsen. Prescriptions: amLODIPine 10 mg PO DAILY #30 tab Hyoscyamine Subl [Levsin Sl 0.125 TAB] 0.125 mg SL Q4HR PRN #20 tablet PRN Reason: Spasms Ketorolac [Toradol] 10 mg PO Q6H PRN #10 tablet PRN Reason: Pain Referrals: VICKI RAZO MD [Staff Physician] - 3-5 Days PRIMARY CARE, [Primary Care Provider] - 3-5 Days Forms: Work/School Release Form(ED) <ANDREA BELCHER - Last Filed: 08/15/20 04:43> ED Review of Systems ROS: Stated complaint: ARM PAIN Other details as noted in HPI ED Course Vital Signs 08/14/20 20:41 Temperature 98.5 F Pulse Rate 75 Respiratory 16 Rate Blood Pressure 178/100 O2 Sat by Pulse 99 Oximetry ED Medical Decision Making - Lab Data Result diagrams: 08/14/20 23:47 08/14/20 23:47 - Radiology Data Radiology results: report reviewed, image reviewed CT ABDOMEN AND PELVIS WITH IV CONTRAST INDICATION: Patient complains of abdominal pain. COMPARISON: CT 04/17/2020 TECHNIQUE: All CT scans at this facility use dose modulation, automated exposure control, iterative reconstruction or weight based dosing, when appropriate, to reduce radiation dose to as low as reasonably achievable. FINDINGS: Lung Bases: No significant abnormality. Skeletal System: No acute abnormality. ABDOMEN: Liver: Diffuse steatosis. Gallbladder: No significant abnormality. Bile Ducts: No significant abnormality. Pancreas: No significant abnormality. Spleen: No significant abnormality. Adrenals: No significant abnormality. Right Kidney: No significant abnormality. Left Kidney: No significant abnormality. Upper GI tract: No significant abnormality. Lymph Nodes: No significant adenopathy. Aorta: No significant abnormality. Additional Findings: No significant abnormality. PELVIS: Colon: No acute abnormality. Diverticulosis is noted. Urinary Bladder and Distal Ureters: No significant abnormality. Appendix: No significant abnormality. Lymph Nodes: No significant adenopathy. Additional Findings: None. IMPRESSION: 1. No acute process in the abdomen or pelvis. 2. Diffuse hepatic steatosis is new since the prior exam. Signer Name: Wyatt Cristina MD Signed: 08/15/2020 3:41 AM Workstation Name: [id number] Transcribed By: RONAK Dictated By: Wyatt Cristina MD Electronically Authenticated By: Wyatt Cristina MD Signed Date/Time: 08/15/20340 DD/ 7 TD/TT: - Medical Decision Making CT abdomen and pelvis fatty liver disease no bleeding no soft tissue abnormality no other acute findings, there is no nausea, vomiting patient is tolerating p.o. intake without symptoms at this time. Patient will follow up with primary care doctor in 2 to 3 days. Patient will return to ED should symptoms worsen. Patient has secondary complaint of cough at home left wrist. 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 Patient has history of carpal tunnel. Patient given referral to primary care for same ,, advised continue NSAIDs as needed analgesic balm, splint as ordered. Wrist and forearm exercises. Patient verbalized agreement and understanding with same patient DC'd home in stable condition at this time Critical care attestation.: If time is entered above; I have spent that time in minutes in the direct care of this critically ill patient, excluding procedure time. ED Disposition Is pt being admited?: No Does the pt Need Aspirin: No Time of Disposition: 04:41
--- NOTE | 2020-08-15 03:45 | Cat Scan Report ---
CT ABDOMEN AND PELVIS WITH IV CONTRAST INDICATION: Patient complains of abdominal pain. COMPARISON: CT 04/17/2020 TECHNIQUE: All CT scans at this facility use dose modulation, automated exposure control, iterative reconstructi on or weight based dosing, when appropriate, to reduce radiation dose to as low as reasonably achieva ble. FINDINGS: Lung Bases: No significant abnormality. Skeletal System: No acute abnormality. ABDOMEN: Liver: Diffuse steatosis. Gallbladder: No significant abnormality. Bile Ducts: No significant abnormality. Pancreas: No significant abnormality. Spleen: No significant abnormality. Adrenals: No significant abnormality. Right Kidney: No significant abnormality. Left Kidney: No significant abnormality. Upper GI tract: No significant abnormality. Lymph Nodes: No significant adenopathy. Aorta: No significant abnormality. Additional Findings: No significant abnormality. PELVIS: Colon: No acute abnormality. Diverticulosis is noted. Urinary Bladder and Distal Ureters: No significant abnormality. Appendix: No significant abnormality. Lymph Nodes: No significant adenopathy. Additional Findings: None. IMPRESSION: 1. No acute process in the abdomen or pelvis. 2. Diffuse hepatic steatosis is new since the prior exam. Signer Name: Wyatt Cristina MD Signed: 08/15/2020 3:41 AM Workstation Name: [id number]
[2020-08-15 04:37] VITALS: BP 172/100
== END 2020-08-15 04:40 | disposition home or self-care (01) ==
LOC: ED 19:32
DX: K76.0 Fatty (change of) liver, not elsewhere classified (principal); G56.02 Carpal tunnel syndrome, left upper limb; I10 Essential (primary) hypertension; E11.9 Type 2 diabetes mellitus without complications; F41.9 Anxiety disorder, unspecified; F17.200 Nicotine dependence, unspecified, uncomplicated; F12.10 Cannabis abuse, uncomplicated; Z79.899 Other long term (current) drug therapy
CPT/HCPCS: 36415; 74177; 80048; 80076; 83690; 85025; 99284; Q9967

== ENCOUNTER 2021-08-04 11:00 | Emergency (ER) | payer SELFPAY ==
--- NOTE | 2021-08-04 15:48 | XRay Report ---
EXAMINATION: Right foot radiograph, 3 views, 08/04/2021 CLINICAL INFORMATION / INDICATION: Foot pain. Possible glass foreign body. COMPARISON: None. FINDINGS: There is no evidence of acute fracture or dislocation of the right foot. No focal soft tiss ue swelling is identified. No radiodense foreign body is identified. IMPRESSION: No radiographic evidence of acute bony abnormality of the right foot. Signer Name: Loyda Littlejohn MD Signed: 08/04/2021 3:44 PM Workstation Name: [id number]
--- NOTE | 2021-08-04 15:51 | Emergency Department Report ---
ED General Adult HPI - General Chief complaint: Extremity Injury, Lower Stated complaint: GLASS IN FOOT Time Seen by Provider: 08/04/21 15:15 Source: patient Mode of arrival: Ambulatory Limitations: No Limitations - History of Present Illness Initial comments: Patient presents with complaints of possible glass in right foot. Patient states the glass has been in his foot for almost 10 years and that it has been pushing its way to the surface for a few years. He states pain recently worsened. He has not seen his primary care doctor for this. No fe benigno/chills/sweats, numbness/tingling/weakness in his foot, or redness. Pain occurs with putting pressure on the foot and is sharp in nature. - Related Data Previous Rx's Medication Instructions Recorded Last Taken Type Acetaminophen/Codeine [Tylenol 1 tab PO Q8H PRN #7 tab 10/16/17 Unknown Rx /Codeine # 3 tab] Famotidine 20 mg PO BID 30 Days #60 tablet 10/16/17 Unknown Rx Amoxicillin/Potassium Clav 1 each PO BID 10 Days #20 tablet 05/16/18 Unknown Rx [Augmentin 875-125 Tablet] Benzocaine/Mentho [Cepacol X 1 each MM Q2H PRN #3 packet 05/16/18 Unknown Rx Strength] Ibuprofen [Ibuprofen 800] 800 mg PO TID PRN #30 tablet 05/16/18 Unknown Rx clonazePAM 0.5 mg PO QDAY PRN #2 tablet 05/04/19 Unknown Rx hydrOXYzine PAMOATE [Vistaril] 25 mg PO Q6HR PRN #20 capsule 05/04/19 Unknown Rx Famotidine [Pepcid] 20 mg PO BID #30 tablet 04/18/20 Unknown Rx HYDROcodone/APAP 5-325 [Derry 1 each PO Q6HR PRN #12 tablet 04/18/20 Unknown Rx 5-325 mg TAB] Hyoscyamine Subl [Levsin Sl 0.125 0.125 mg SL Q4HR PRN #20 tablet 08/15/20 Unknown Rx TAB] Ketorolac [Toradol] 10 mg PO Q6H PRN #10 tablet 08/15/20 Unknown Rx amLODIPine 10 mg PO DAILY #30 tab 08/15/20 Unknown Rx Ibuprofen [Motrin 800 MG tab] 800 mg PO Q8HR PRN #20 tablet 08/04/21 Unknown Rx Mupirocin [Bactroban 2% OINT] 1 applic TP TID 10 Days #1 tube 08/04/21 Unknown Rx Allergies Allergy/AdvReac Type Severity Reaction Status Date / Time No Known Allergies Allergy Verified 04/22/19 17:32 ED Review of Systems ROS: Stated complaint: GLASS IN FOOT Other details as noted in HPI Constitutional: denies: chills, malaise Musculoskeletal: denies: joint swelling, arthralgia Skin: denies: change in color Neurological: denies: numbness, paresthesias ED Past Medical Hx - Past Medical History Hx Hypertension: Yes Hx Diabetes: Yes Hx Psychiatric Treatment: Yes (anexity) Additional medical history: PANCREATITIS - Social History Smoking Status: Current Every Day Smoker Substance Use Type: Marijuana - Medications Home Medications: Home Medications Medication Instructions Recorded Confirmed Last Taken Type Acetaminophen/Codeine [Tylenol 1 tab PO Q8H PRN #7 tab 10/16/17 Unknown Rx /Codeine # 3 tab] Famotidine 20 mg PO BID 30 Days #60 tablet 10/16/17 Unknown Rx Amoxicillin/Potassium Clav 1 each PO BID 10 Days #20 tablet 05/16/18 Unknown Rx [Augmentin 875-125 Tablet] Benzocaine/Mentho [Cepacol X 1 each MM Q2H PRN #3 packet 05/16/18 Unknown Rx Strength] Ibuprofen [Ibuprofen 800] 800 mg PO TID PRN #30 tablet 05/16/18 Unknown Rx clonazePAM 0.5 mg PO QDAY PRN #2 tablet 05/04/19 Unknown Rx hydrOXYzine PAMOATE [Vistaril] 25 mg PO Q6HR PRN #20 capsule 05/04/19 Unknown Rx Famotidine [Pepcid] 20 mg PO BID #30 tablet 04/18/20 Unknown Rx HYDROcodone/APAP 5-325 [Derry 1 each PO Q6HR PRN #12 tablet 04/18/20 Unknown Rx 5-325 mg TAB] Hyoscyamine Subl [Levsin Sl 0.125 0.125 mg SL Q4HR PRN #20 tablet 08/15/20 Unknown Rx TAB] Ketorolac [Toradol] 10 mg PO Q6H PRN #10 tablet 08/15/20 Unknown Rx amLODIPine 10 mg PO DAILY #30 tab 08/15/20 Unknown Rx Ibuprofen [Motrin 800 MG tab] 800 mg PO Q8HR PRN #20 tablet 08/04/21 Unknown Rx Mupirocin [Bactroban 2% OINT] 1 applic TP TID 10 Days #1 tube 08/04/21 Unknown Rx ED Physical Exam - General Limitations: No Limitations General appearance: alert, in no apparent distress - Head Head exam: Present: atraumatic, normocephalic - Eye Eye exam: Present: normal appearance. Absent: scleral icterus - Respiratory Respiratory exam: Absent: respiratory distress - Cardiovascular Cardiovascular Exam: Present: regular rate - Neurological Exam Neurological exam: Present: alert, oriented X3 - Psychiatric Psychiatric exam: Present: normal affect, normal mood - Skin Skin exam: Present: warm, dry, intact, normal color, other (Tender small callus noted to plantar surface at the distal second/third metatarsal area; no erythema noted; no obvious foreign body). Absent: rash ED Course Vital Signs 08/04/21 08/04/21 11:17 16:21 Temperature 98.2 F Pulse Rate 89 78 Respiratory 15 16 Rate Blood Pressure 119/73 Blood Pressure 118/62 [Right] O2 Sat by Pulse 97 98 Oximetry - Procedure Description Procedures done: Surface cleaned with Betadine. Sterile field. 1 cc of lidocaine 1% without epi used to anesthetize area. 15 blade used to remove part of callus; no subcutaneous exploration was made; no foreign bodies were noted; no bleeding occurred; sterile dressing placed; patient tolerated procedure well without any immediate complication ED Medical Decision Making - Radiology Data Radiology results: report reviewed EXAMINATION: Right foot radiograph, 3 views, 08/04/2021 CLINICAL INFORMATION / INDICATION: Foot pain. Possible glass foreign body. COMPARISON: None. FINDINGS: There is no evidence of acute fracture or dislocation of the right foot. No focal soft tissue swelling is identified. No radiodense foreign body is identified. IMPRESSION: No radiographic evidence of acute bony abnormality of the right foot. - Medical Decision Making Patient presents with complaints of possible glass in right foot. Patient states the glass has been in his foot for almost 10 years and that it has been pushing its way to the surface for a few years. He states pain recently worsened. He has not seen his primary care doctor for this. No fever/chills/sweats, numbness/tingling/weakness in his foot, or redness. Pain occurs with putting pressure on the foot and is sharp in nature. X-rays negative for any foreign bodies. No signs of infection on exam. No foreign bodies removed from the foot. Recommend he follows up with podiatry for further evaluation and treatment, referral provided. He is otherwise well-nessa earing and stable for discharge home. Wound care discussed in detail with patient who verbalized understanding Critical care attestation.: If time is entered above; I have spent that time in minutes in the direct care of this critically ill patient, excluding procedure time. ED Disposition Clinical Impression: Foot pain, right Disposition: HOME / SELF CARE / HOMELESS Is pt being admited?: No Condition: Stable Prescriptions: Mupirocin [Bactroban 2% OINT] 1 applic TP TID 10 Days #1 tube Ibuprofen [Motrin 800 MG tab] 800 mg PO Q8HR PRN #20 tablet PRN Reason: pain Referrals: DEJAN ANGELES MD [Staff Physician] - 3-5 Days
[2021-08-04 16:23] VITALS: BP 118/62
== END 2021-08-04 16:24 | disposition home or self-care (01) ==
LOC: ED 11:00
DX: M79.671 Pain in right foot (principal); F17.200 Nicotine dependence, unspecified, uncomplicated; F12.90 Cannabis use, unspecified, uncomplicated; I10 Essential (primary) hypertension; E11.8 Type 2 diabetes mellitus with unspecified complications
CPT/HCPCS: 99283